=== PATIENT | female | born 1985 | race Two or more races ===

== ENCOUNTER 2022-09-07 22:47 | Emergency (ER) | payer MEDICAID ==
[~2022-09-07] VITALS: Ht 172.7 cm; Wt 86.2 kg
[2022-09-07 23:55] VITALS: BP 133/79
--- NOTE | 2022-09-08 | NUR ---
BIBSELF FROM HOME C/C L PINK EYE X1 DAY. C/O ONGOING COUGH ,CONGESTION FOR MONTHS. PATIENT IS AOX4 ABLE TO MAKE NEEDS KNOWN. PLACED COMFORTABLY IN BED.
[2022-09-08] MEDS ORDERED: CIPR2.5D14 LEFTEYE (00:02)
--- NOTE | 2022-09-08 00:02 | NUR ---
SEEN BY DR BUENO AT BEDSIDE
--- NOTE | 2022-09-08 00:08 | NUR ---
Patient discharged to home in stable condition. Written and verbal after care instructions given. Patient verbalizes understanding of instruction.
== END 2022-09-08 00:08 | disposition home or self-care (01) ==
LOC: ER 22:49
DX: H11.32 Conjunctival hemorrhage, left eye (principal); Z60.2 Problems related to living alone

== ENCOUNTER 2022-12-17 16:39 | Emergency (ER) | payer MEDICAID ==
[~2022-12-17] VITALS: Ht 175.3 cm; Wt 83.9 kg
[~2022-12-17 16:39] MED LIST: CIPR2.5D14 LEFTEYE
[2022-12-17] MEDS ORDERED: IBUP-1955 PO (17:19)
[2022-12-17] MEDS ORDERED: AMOX-430 PO (17:19)
[2022-12-17] MEDS ORDERED: CLIN300C12 PO (17:19)
[2022-12-17] MEDS ORDERED: dexaMETHasone SOD PHOSPHATE 10 MG/ML VIAL ONE (17:26)
[2022-12-17] MEDS ORDERED: AMOX/CLAVULANATE 875 MG TABLET ONE (17:27)
[2022-12-17] MEDS ORDERED: diphenhydrAMINE HCL 25 MG CAPSULE ONE (17:27)
[2022-12-17] MEDS ORDERED: KETOROLAC TROMETHAMINE INJ 30 MG/ML VIAL ONE (17:27)
[2022-12-17] MEDS ORDERED: diphenhydrAMINE HCL 25 MG CAPSULE PO ONE (17:30)
[2022-12-17] MEDS ORDERED: CLINDAMYCIN PALMITATE HCL 75 MG/5 ML BOTTLE PO ONE (17:30)
[2022-12-17] MEDS ORDERED: DIPHENHYDRAMINE HCL 12.5 MG/5 ML UDC PO ONE (17:30)
[2022-12-17] MEDS ORDERED: dexaMETHasone SOD PHOSPHATE 10 MG/ML VIAL IM ONE (17:30)
[2022-12-17] MEDS ORDERED: AMOX/CLAVULANATE 875 MG TABLET PO ONE (17:30)
[2022-12-17] MEDS ORDERED: KETOROLAC TROMETHAMINE INJ 30 MG/ML VIAL IM ONE (17:30)
[2022-12-17 17:49] VITALS: BP 125/65; TEMP 98.1; O2SAT 98
== END 2022-12-17 17:50 | disposition home or self-care (01) ==
LOC: ER 16:45
DX: L02.01 Cutaneous abscess of face (principal); L03.213 Periorbital cellulitis; Z60.2 Problems related to living alone
CPT/HCPCS: 99284; 96372 ×2; J1100; Q0163 ×2; J1885

== ENCOUNTER 2025-03-12 12:33 | Emergency (ER) | payer MEDICAID ==
[~2025-03-12] VITALS: Ht 175.3 cm; Wt 85.7 kg
[~2025-03-12 12:33] MED LIST changes: +AMOX-430 PO; +CLIN300C12 PO; +IBUP-1955 PO
[2025-03-12] MEDS: IV NS 0.9% 1,000 ML BAG IV ONE (13:30)
[2025-03-12] MEDS: FAMOTIDINE/PF INJ 20 MG/2 ML VIAL IV ONE (13:32)
[2025-03-12] MEDS: METOCLOPRAMIDE HCL 10 MG/2 ML VIAL IV ONE (13:35)
[2025-03-12] MEDS: KETOROLAC TROMETHAMINE 15 MG/ML VIAL IV ONE (13:36)
[2025-03-12 14:02] LABS: PLATELET COUNT (AUTO) 318 K/uL (150-450); RED BLOOD CELL COUNT(AUTO) 5.14 MIL/uL (4.0-5.2); RED CELL DISTRIBUTION WIDTH 13.4 % (11.5-15.0); WHITE BLOOD COUNT (AUTO) 6.7 K/uL (4.3-11.0)
[2025-03-12] MEDS ORDERED: KETOROLAC TROMETHAMINE 15 MG/ML VIAL ONE (14:03)
[2025-03-12] MEDS ORDERED: METOCLOPRAMIDE HCL 10 MG/2 ML VIAL ONE (14:03)
[2025-03-12] MEDS ORDERED: FAMOTIDINE/PF INJ 20 MG/2 ML VIAL IV ONE (14:04)
[2025-03-12 14:11] LABS: CALCIUM, SERUM 8.3 mg/dL (8.5-10.1); CREATININE 0.8 mg/dL (0.6-1.3); SODIUM SERUM 137.0 mmol/L (136-145); UREA NITROGEN, BLOOD 9.0 mg/dL (7-18)
[2025-03-12 14:25] LABS: ASPARTATE AMINOTRANSFERASE 17.0 U/L (15-37); TOTAL PROTEIN, SERUM 7.5 g/dL (6.4-8.2)
[2025-03-12 16:14] VITALS: BP 130/87; TEMP 98.1; O2SAT 100
== END 2025-03-12 17:01 | disposition home or self-care (01) ==
LOC: ER 12:39
DX: G44.209 Tension-type headache, unspecified, not intractable (principal); R11.2 Nausea with vomiting, unspecified; R10.20 Pelvic and perineal pain unspecified side; Z91.048 Other nonmedicinal substance allergy status; Z60.2 Problems related to living alone
CPT/HCPCS: 99284; 96374; 96375; 96361; 85025; 80048; 83690; 80076; 84703; 36415; 84702; J1885; J1200; J1308; J2765; J7030